=== PATIENT | male | born 1980 | race Caucasian/White ===

== ENCOUNTER → 2017-07-02 | Outpatient (CLI) | payer OTHER ==
--- NOTE | 2017-07-02 13:59 | REP ---
CT IACS WITHOUT CONTRAST: HISTORY: Left hearing loss. The right internal auditory canal, cochlea, vestibule, and semicircular canals are normal in appearance. The ossicles are normal in configuration and position. The scutum and tegmen are intact. The middle ear cavity and mastoid air cells are clear. The patient is status post left mastoidectomy. Two small metallic densities are present in the middle ear cavity. The internal auditory canal, cochlea, vestibule, and semicircular canals are normal in appearance. The tegmen is intact. Mucosal thickening is present in the mastoid air cells. Mucosal thickening is present in the left maxillary and sphenoid sinuses. The nasopharynx is normal in appearance. IMPRESSION: The patient is status post left mastoidectomy. Signed by Betito You MD 07/02/2017 02:06 P
== END ==
LOC: M RAD 12:53
PROVIDERS: ATTEND Otolaryngology
DX: H90.12 Conductive hearing loss, unilateral, left ear, with unrestricted hearing on the contralateral side (principal)

== ENCOUNTER 2017-08-30 09:08 | Day surgery (SDC) | payer OTHER ==
[~2017-08-30] VITALS: Ht 185.4 cm; Wt 94.3 kg
[2017-08-30] MEDS ORDERED: LR 1,000 ML IV ONE (09:30)
[2017-08-30] MEDS ORDERED: SCOPOLAMINE 1.5 MG TRANSDERMAL TOP ONE (13:00)
[2017-08-30] MEDS ORDERED: SCOPOLAMINE 1.5 MG TRANSDERMAL As Ordered ONE (13:12)
[2017-08-30] MEDS ORDERED: MIDAZOLAM INJ 2 MG/2 ML VIAL (J2250) As Ordered ONE (13:19)
[2017-08-30] MEDS ORDERED: fentaNYL 100 MCG/2 ML INJECTION (J3010) As Ordered ONE (13:20)
[2017-08-30] MEDS ORDERED: LIDOCAINE W/EPINEPHRINE 1% 20ML VIAL As Ordered ONE (13:24)
[2017-08-30] MEDS ORDERED: CIPRODEX OTIC SUSP 7.5ML As Ordered ONE (13:24)
[2017-08-30] MEDS ORDERED: EPINEPHrine 1MG/ML INJ 30ML MD-VIAL As Ordered ONE (13:25)
[2017-08-30] MEDS ORDERED: ONDANSETRON 4MG/2ML VIAL (J2405) As Ordered ONE (14:13)
[2017-08-30] MEDS ORDERED: LIDOCAINE 2% INJ 100 MG/5 ML SDV (FOR ANES.) As Ordered ONE (14:13)
[2017-08-30] MEDS ORDERED: dexameTHASONE 4 MG/ML 1ML VIAL (J1100) As Ordered ONE (14:13)
[2017-08-30] MEDS ORDERED: ROCURONIUM BROMIDE 50 MG/5 ML VIAL As Ordered ONE (14:13)
[2017-08-30] MEDS ORDERED: PROPOFOL 200 MG/20 ML VIAL As Ordered ONE (14:13)
[2017-08-30] MEDS ORDERED: SUCCINYLCHOLINE 100 MG/5 ML SYRINGE (J0330) As Ordered ONE (14:13)
[2017-08-30] MEDS ORDERED: HYDROmorphone HCL 2 MG/ML 1ML VIAL (J1170) As Ordered ONE (14:15)
[2017-08-30] MEDS ORDERED: BACITRACIN OINT 30GM As Ordered ONE (15:39)
[2017-08-30] MEDS ORDERED: ONDANSETRON 4MG/2ML VIAL (J2405) IV PRN (16:15)
[2017-08-30] MEDS ORDERED: LR 1,000 ML IV SCH (16:15)
[2017-08-30] MEDS ORDERED: PERCOCET 5MG/325MG TAB PO PRN (16:15)
[2017-08-30] MEDS ORDERED: fentaNYL 100 MCG/2 ML INJECTION (J3010) IV PRN (16:15)
--- NOTE | 2017-08-30 16:21 | ROOPDOC ---
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 POSTPROCEDURE DIAGNOSES: [Same]. PROCEDURE: [Left revision tympanoplasty with total ossicular chain reconstruction prosthesis placement with a Mayco total ossicular chain reconstruction prosthesis. After removal of previous titanium prosthesis, ossicular reconstruction prosthesis that had been dislodged]. SURGEON: [Palomo Marc Jr.], SAS PROGRAMMER: [None], MD ANESTHESIA: [Gen. via endotracheal tube]. ESTIMATED BLOOD LOSS: Approximately [less than 5] mL. COMPLICATIONS: [None]. REMARKS: [Found dislodged left titanium ossicular chain reconstruction prosthesis with the shoe dislodged inferiorly and angled oblique and the shaft going posteriorly superior toward the aditus ad antrum and not in continuity with the tympanic membrane. No evidence of cholesteatoma present]. PROCEDURE NOTE: [With the patient in the supine position after being induced and intubated, prepped and draped in usual fashion. The patient was injected with 2 mL 1% lidocaine 1:100,000 epinephrine in the left ear canal as well as a retroauricular region and the previous incision site. Utilizing the ear speculum. A tympano-meatal flap was created with the round knife and the sickle knife. Cartilage in the attic was identified, but no prosthesis. Initially was identified. Mucosa was entered and scar tissue was removed and the prosthesis was noted to be dislodged into the region of the aditus had antrum. It was removed as it appeared to be too short and was sent for gross pathological evaluation. Next, the shoe was noted to be dislodged off the oval window more posteriorly with the area more angled, and using an angled fine hook. It was removed without trauma. After this was removed. It was felt that the cartilage from the previous surgery needed to be removed as it was curling and may have been problematic and the placement of the graft. This was dissected with Bellucci scissors off of the residual tympanic membrane, and then it was morselized to straighten it out. Gelfoam soaked in Ciprodex was placed in the posterior inferior portions, and anterior portions surrounding the oval window. Next, the Mayco prosthesis was placed over the oval window with good blood ability and a positive round window reflex was noted. Next, the morselized cartilage was placed over the graft and part of it was placed so that it would help prevent the prosthesis from being dislodged into the aditus ad antrum again , a small incision in the retroauricular superior region, presently 2-1/2 cm was done to try and obtain more fascia. However, it was mainly scar tissue present. We did obtain some fascia and pressed and draped it over the prosthesis and then laid the temporal meatal flap over that. Gelfoam soaked in Ciprodex was placed in the external ear canal to pack the prosthesis in place. Cotton ball then was coated in bacitracin ointment placed in the carlito bowl followed by an eye pad, which was taped to the ear with 1 inch paper tape and Mastisol. A Magali dressing was then applied. Patient was seen in recovery and was doing well, had no nystagmus and no vertigo.]. DESCRIPTION OF PROCEDURE: [Revision left tympanoplasty with ossicular chain reconstruction. No evidence of cholesteatoma present.]. PALOMO MARC MD Aug 30, 2017 16:21
[2017-08-30] MEDS ORDERED: ANEXSIA, NORCO 7.5MG/325MG TABLET(HYDROCODONE/APAP) PO PRN (16:30)
[2017-08-30 17:25] VITALS: BP 128/72
== END 2017-08-30 17:28 | disposition home or self-care (01) ==
LOC: M SDC 09:08
PROVIDERS: ATTEND Otolaryngology
DX: H90.12 Conductive hearing loss, unilateral, left ear, with unrestricted hearing on the contralateral side (principal); T85.628A Displacement of other specified internal prosthetic devices, implants and grafts, initial encounter; Y72.2 Prosthetic and other implants, materials and accessory otorhinolaryngological devices associated with adverse incidents; J30.2 Other seasonal allergic rhinitis; Z87.891 Personal history of nicotine dependence; Z88.0 Allergy status to penicillin; Z88.1 Allergy status to other antibiotic agents
CPT/HCPCS: 69633; 88300; A4649; J0330; J1100; J1170; J2250; J2405; J3010

== ENCOUNTER 2019-07-27 17:11 | Emergency (ER) | payer OTHER ==
[~2019-07-27] VITALS: Ht 185.4 cm; Wt 95.5 kg
[2019-07-27] MEDS ORDERED: DOXY100T (17:21)
[2019-07-27] MEDS ORDERED: XARE20TA PO (17:21)
[2019-07-27 18:58] LABS: BASO # 0.1 10^3/uL (0.0-0.2); BASO % 0.8 % (0.0-1.0); EOS # 0.5 10^3/uL (0.0-0.5); EOS % 5.7 % (0.0-3.0); HEMATOCRIT 47.5 % (42.0-52.0); HEMOGLOBIN 17.1 g/dl (13.5-17.5); LYMPH # 3.8 10^3/uL (1.5-5.0); LYMPH % 45.1 % (24.0-44.0); MEAN CORPUSCULAR HEMOGLOBIN 31.9 pg (27.0-33.0); MEAN CORPUSCULAR VOLUME 88.6 fl (80.0-96.0); MONO # 0.7 10^3/uL (0.0-0.8); MONO % 7.9 % (0.0-5.0); NEUTROPHILS # 3.3 10^3/uL (1.5-8.5); NEUTROPHILS % 40.1 % (36.0-66.0); PLATELET COUNT, AUTOMATED 293 10^3/uL (150-450); RED BLOOD COUNT 5.36 10^6/uL (4.30-6.10); WHITE BLOOD COUNT 8.4 10^3/uL (4.0-10.0)
--- NOTE | 2019-07-27 19:01 | REP ---
Clinical: Chest pain. Comparison: None. Findings: Mediastinum and cardiac silhouette are normal. Prominent coarsened markings may reflect bronchitis. No focal consolidation, effusion, or pneumothorax. Skeletal structures intact. Impression: Cannot exclude bronchitis/chronic reactive airway disease. No focal consolidation. Electronically Signed by Isidro Dunlap MD 07/27/2019 06:52 P
[2019-07-27 19:15] LABS: BLOOD UREA NITROGEN 9 MG/DL (7-18); CALCIUM LEVEL 9.1 MG/DL (8.5-10.1); CARBON DIOXIDE LEVEL 30 MEQ/L (21-32); CHLORIDE LEVEL 104 MEQ/L (98-107); CK-MB VALUE MASS < 1.0 NG/ML (<3.6); CPK CREATINE PHOSPHOKINASE 90 U/L (39-308); CREATININE FOR GFR 0.99 MG/DL (0.70-1.30); GLOMERULAR FILTRATION RATE > 60.0 (>60); GLUCOSE, FASTING 101 MG/DL (70-100); MB/CK RELATIVE INDEX 1.11 (< OR =4); POTASSIUM SERUM 3.9 MEQ/L (3.5-5.1); SODIUM LEVEL 139 MEQ/L (136-145); TROPONIN I < 0.02 NG/ML (< 0.10)
[2019-07-27] MEDS ORDERED: ISOVUE-370 76% 100ML VIAL (Q9967) As Ordered ONE (19:56)
--- NOTE | 2019-07-27 20:43 | ECGEPIP ---
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 Order Number: [id number] Reading MD: Silvia Geller Measurements Intervals [place] Rate: 80 P: 38 IN: 175 QRS: 37 QRSD: 110 T: 30 QT: 369 QTc: 426 Interpretive Statements SINUS RHYTHM WITH SINUS ARRHYTHMIA NO PRIOR ECG FOR COMPARISON Electronically Signed on 07-27-2019 20:43:39 EDT by Silvia Geller
--- NOTE | 2019-07-27 20:54 | REPVR ---
PROCEDURE INFORMATION: Exam: CT Angiography Chest With Contrast Exam date and time: 07/27/2019 8:32 PM Clinical history: 39 years old, male; Shortness of breath; Additional info: Sob/chest pain; R/O pe TECHNIQUE: Imaging protocol: Computed tomographic angiography of the chest with intravenous contrast. 3D rendering: MIP reconstructed images were created and reviewed. Radiation optimization: All CT scans at this facility use at least one of these dose optimization techniques: automated exposure control; mA and/or kV adjustment per patient size (includes targeted exams where dose is matched to clinical indication); or iterative reconstruction. Contrast material: ISOVUE 370; Contrast volume: 75 ml; Contrast route: IV; COMPARISON: CR PORTABLE CHEST X-RAY 07/27/2019 6:31 PM FINDINGS: Limitations: Motion artifact does moderately limit the sensitivity of this examination. Pulmonary arteries: No filling defects in the pulmonary arteries to suggest pulmonary emboli. Aorta: Unremarkable. No aortic aneurysm. No aortic dissection. Lungs: Dependent subsegmental pulmonary atelectasis. Pleural space: Unremarkable. No pneumothorax. No pleural effusion. Heart: Unremarkable. No cardiomegaly. No pericardial effusion. Lymph nodes: Unremarkable. No enlarged lymph nodes. Bones/joints: Unremarkable. No acute fracture. Soft tissues: Unremarkable. IMPRESSION: No filling defects in the pulmonary arteries to suggest pulmonary emboli. Electronically signed by: Robert Nguyen On 07/27/2019 20:54:12 PM
[2019-07-27 23:17] LABS: CK-MB VALUE MASS < 1.0 NG/ML (<3.6); CPK CREATINE PHOSPHOKINASE 83 U/L (39-308); TROPONIN I < 0.02 NG/ML (< 0.10)
[2019-07-28 00:04] VITALS: BP 129/94
--- NOTE | 2019-07-28 22:33 | ECGEPIP ---
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
== END 2019-07-28 00:20 | disposition home or self-care (01) ==
LOC: M ED 17:11
DX: R07.9 Chest pain, unspecified (principal); Z86.718 Personal history of other venous thrombosis and embolism; Z88.1 Allergy status to other antibiotic agents; Z79.01 Long term (current) use of anticoagulants; Z79.899 Other long term (current) drug therapy
CPT/HCPCS: 36415; 71045; 71275; 80048; 82550; 82553; 84484; 85025; 93005; 93041; 94760; 99285; Q9967

== ENCOUNTER → 2019-10-05 | Outpatient (CLI) | payer OTHER ==
[~2019-10-05] MED LIST: DOXY100T; INDO50CA91 PO; TIZA4TAB4 PO; XARE20TA PO
--- NOTE | 2019-10-05 20:13 | REP ---
Clinical: Bilateral lower extremity pain. Given history of prior right lower extremity deep venous thrombosis. Technique: Russell scale and color Doppler evaluation using linear high frequency transducer. Findings: Right lower extremity demonstrates incidental duplicated distal femoral vein along with small amount of nonocclusive thrombus along the periphery of the distal femoral vein and popliteal vein consistent with the given history of prior deep venous thrombosis. No acute occlusive thrombus is appreciated. Left lower extremity demonstrates normal compressibility, flow, and wave patterns without evidence for deep venous thrombosis. Impression: 1. Suspected small amount of old nonocclusive thrombus in the right femoral vein/popliteal vein. 2. Normal left lower extremity without the venous thrombosis. Electronically Signed by Isidro Dunlap MD 10/05/2019 08:05 P
== END ==
LOC: M RAD 08:39
PROVIDERS: ATTEND Internal Medicine Hematology
DX: M79.605 Pain in left leg (principal); M79.604 Pain in right leg

== ENCOUNTER 2019-10-25 08:26 | Emergency (ER) | payer OTHER ==
[~2019-10-25] VITALS: Ht 185.4 cm; Wt 101.7 kg
[2019-10-25] MEDS ORDERED: ASPI81TA26 (08:39)
[2019-10-25] MEDS ORDERED: ACETAMINOPHEN 325 MG TAB PO ONE (09:30)
[2019-10-25 09:36] LABS: BASO # 0.1 10^3/uL (0.0-0.2); EOS # 0.4 10^3/uL (0.0-0.5); EOS % 8.4 % (0.0-3.0); HEMATOCRIT 50.9 % (42.0-52.0); HEMOGLOBIN 17.5 g/dl (13.5-17.5); LYMPH # 2.3 10^3/uL (1.5-5.0); LYMPH % 44.1 % (24.0-44.0); MEAN CORPUSCULAR HEMOGLOBIN 30.4 pg (27.0-33.0); MEAN CORPUSCULAR HGB CONC 34.4 g/dl (32.0-36.5); MEAN CORPUSCULAR VOLUME 88.5 fl (80.0-96.0); MONO # 0.5 10^3/uL (0.0-0.8); MONO % 9.4 % (0.0-5.0); NEUTROPHILS # 1.9 10^3/uL (1.5-8.5); NEUTROPHILS % 36.7 % (36.0-66.0); PLATELET COUNT, AUTOMATED 281 10^3/uL (150-450); RED BLOOD COUNT 5.75 10^6/uL (4.30-6.10); WHITE BLOOD COUNT 5.2 10^3/uL (4.0-10.0)
[2019-10-25 09:49] LABS: INR 1.06; PARTIAL THROMBOPLASTIN TIME 27.2 SECONDS (25.0-38.4); PROTHROMBIN TIME 13.6 SECONDS (11.8-14.0)
[2019-10-25 09:55] LABS: APPEARANCE, URINE CLEAR (CLEAR); BACTERIA, URINE AUTO NEGATIVE (NEGATIVE); BILIRUBIN, URINE AUTO NEGATIVE (NEGATIVE); BLOOD, URINE BLOOD NEGATIVE (NEGATIVE); COLOR, URINE YELLOW (YELLOW); GLUCOSE, URINE (UA) AUTO NEGATIVE (NEGATIVE); KETONE, URINE AUTO TRACE mg/dL (NEGATIVE); LEUKOCYTE ESTERASE, URINE AUTO NEGATIVE (NEGATIVE); NITRITE, URINE AUTO NEGATIVE (NEGATIVE); PROTEIN, URINE AUTO NEGATIVE (NEGATIVE); RBC, URINE AUTO 1 /HPF (0-3); SPECIFIC GRAVITY URINE AUTO 1.018 (1.002-1.035); SQUAMOUS EPITHELIAL CELL UR AU 0 /HPF (0-6); WBC, URINE AUTO 0 /HPF (0-3)
[2019-10-25 10:24] LABS: BLOOD UREA NITROGEN 14 MG/DL (7-18); CALCIUM LEVEL 8.9 MG/DL (8.5-10.1); CARBON DIOXIDE LEVEL 28 MEQ/L (21-32); CHLORIDE LEVEL 103 MEQ/L (98-107); CREATININE FOR GFR 1.09 MG/DL (0.70-1.30); GLOMERULAR FILTRATION RATE > 60.0 (>60); GLUCOSE, FASTING 86 MG/DL (70-100); POTASSIUM SERUM 4.2 MEQ/L (3.5-5.1); SODIUM LEVEL 137 MEQ/L (136-145)
--- NOTE | 2019-10-25 11:39 | REP ---
RIGHT LOWER EXTREMITY DOPPLER VENOUS ULTRASOUND: 10/25/2019. Clinical history: On blood thinners for 2 weeks with DVT seen at that time, nonocclusive right femoral and popliteal vein. Apparently had previous DVT to that. Comparison: 10/05/2019. Findings: Standard duplex techniques were utilized. In the right popliteal vein and tibioperoneal trunk there is a small amount of residual nonocclusive thrombus. Color flow is maintained through these vessels. I do not see any thrombus in the distal femoral vein. It shows full compressibility. The common femoral vein was also intact and fully compressible. All levels show respiratory variation and augmented flow. Impression: 1. Some residual nonocclusive thrombus in the popliteal vein to the level of the tibioperoneal trunk. No thrombus in the distal femoral vein today. Some improvement since 10/05/2019. Electronically Signed by Fredy Burgos MD 10/25/2019 08:24 P
--- NOTE | 2019-10-25 11:42 | REP ---
LIMITED PELVIC ULTRASOUND: 10/25/2019. Clinical history: Right groin pain. Evaluate for inguinal hernia or appendicitis. Please scan these areas. Findings: Sonographic evaluation of the right lower quadrant in the region of the pain showed no visible appendix. The abdomen in this region is obscured by extensive gas shadowing with no appendix visualization on these images. Scanning of the right inguinal canal in comparison with the left shows symmetric appearance inguinal canal. No mass at rest. No mass or increase in size with Valsalva maneuver. Impression: 1. There is no ultrasound evidence of right inguinal hernia or mass. Exam performed at rest and with Valsalva maneuver with no changes. Similar appearance on the left. 2. Appendix not visualized. This does not exclude the possibility of appendicitis. Any decision for further imaging should be based on appropriate clinical grounds. Electronically Signed by Fredy Burgos MD 10/25/2019 08:24 P
--- NOTE | 2019-10-25 11:44 | REP ---
SCROTAL ULTRASOUND: 10/25/2019. Clinical history: Right scrotal/testicular pain. Findings: No prior studies. The patient did have concurrent right inguinal ultrasound today without visible hernia. The right testis 3.9 x 2.3 x 3.2 cm and the left testis 4.6 x 2.4 x 2.8 cm. Both testes are homogeneous in appearance and without calcification, mass, cyst or architectural distortion. There is no evidence of hydrocele. There is no varicocele. Blood flow seen in both testes with Doppler tracing 0.53 on the right and 0.58 on the left, normal. The epididymal head has a CC diameter 8.4 mm on the right and 7.6 mm on the left, normal scrotal wall thickness is 3 mm in each side and normal. No hyperemia or other significant finding. Impression: 1. Bilateral normal testes. No abnormalities visible on the scrotal ultrasound. Normal blood flow without torsion. No mass or abnormal fluid collection. Electronically Signed by Fredy Burgos MD 10/25/2019 08:24 P
[2019-10-25] MEDS ORDERED: KETOROLAC TROMETHAMINE 10 MG TAB PO ONE (12:15)
[2019-10-25] MEDS ORDERED: KETO10TAB PO ×2 (12:15→12:33)
[2019-10-25] MEDS ORDERED: CYCL10TA PO ×2 (12:15→12:33)
[2019-10-25 12:18] VITALS: BP 134/93
== END 2019-10-25 12:34 | disposition home or self-care (01) ==
LOC: M ED 08:26
DX: S76.811A Strain of other specified muscles, fascia and tendons at thigh level, right thigh, initial encounter (principal); X50.0XXA Overexertion from strenuous movement or load, initial encounter; Y99.1 Military activity; Z86.718 Personal history of other venous thrombosis and embolism; Z88.0 Allergy status to penicillin; Z88.1 Allergy status to other antibiotic agents; Z79.02 Long term (current) use of antithrombotics/antiplatelets; Z79.891 Long term (current) use of opiate analgesic; Z79.899 Other long term (current) drug therapy

== ENCOUNTER 2020-02-07 16:49 | Emergency (ER) | payer OTHER ==
[~2020-02-07] VITALS: Ht 185.4 cm; Wt 109.4 kg
[~2020-02-07 16:49] MED LIST changes: +ASPI81TA26; +CYCL-707 PO; +KETO10TAB PO
[2020-02-07] MEDS ORDERED: NS 1,000 ML IV ONE (17:15)
[2020-02-07 17:26] LABS: BASO # 0.1 10^3/uL (0.0-0.2); BASO % 1.1 % (0.0-1.0); EOS # 0.6 10^3/uL (0.0-0.5); EOS % 6.9 % (0.0-3.0); HEMATOCRIT 49.4 % (42.0-52.0); HEMOGLOBIN 17.7 g/dl (13.5-17.5); LYMPH # 2.8 10^3/uL (1.5-5.0); LYMPH % 33.9 % (24.0-44.0); MEAN CORPUSCULAR HEMOGLOBIN 31.2 pg (27.0-33.0); MEAN CORPUSCULAR HGB CONC 35.8 g/dl (32.0-36.5); MEAN CORPUSCULAR VOLUME 87.1 fl (80.0-96.0); MONO # 0.8 10^3/uL (0.0-0.8); MONO % 9.1 % (0.0-5.0); PLATELET COUNT, AUTOMATED 329 10^3/uL (150-450); RED BLOOD COUNT 5.67 10^6/uL (4.30-6.10); WHITE BLOOD COUNT 8.3 10^3/uL (4.0-10.0)
[2020-02-07 17:30] LABS: INR 0.97; PROTHROMBIN TIME 12.6 SECONDS (11.8-14.0)
[2020-02-07] MEDS ORDERED: METOPROLOL TART 25 MG TABLET PO ONE (17:30)
[2020-02-07] MEDS ORDERED: ASPIRIN 325 MG TAB PO ONE (17:30)
[2020-02-07 17:32] VITALS: BP 151/101
[2020-02-07 17:53] LABS: ALBUMIN 3.6 GM/DL (3.2-5.2); ALT/SGPT 31 U/L (12-78); BILIRUBIN,DIRECT 0.3 MG/DL (0.0-0.2); BILIRUBIN,TOTAL 1.6 MG/DL (0.2-1.0); BLOOD UREA NITROGEN 10 MG/DL (7-18); CALCIUM LEVEL 8.3 MG/DL (8.5-10.1); CARBON DIOXIDE LEVEL 26 MEQ/L (21-32); CHLORIDE LEVEL 104 MEQ/L (98-107); CK-MB VALUE MASS < 1.0 NG/ML (<3.6); CPK CREATINE PHOSPHOKINASE 108 U/L (39-308); CREATININE FOR GFR 1.11 MG/DL (0.70-1.30); FREE THYROXINE INDEX 2.7 % (1.4-3.8); GLOMERULAR FILTRATION RATE > 60.0 (>60); GLUCOSE, FASTING 116 MG/DL (70-100); MAGNESIUM LEVEL 1.8 MG/DL (1.8-2.4); MB/CK RELATIVE INDEX 0.93 (< OR =4); SODIUM LEVEL 137 MEQ/L (136-145); T UPTAKE 37 % (33-40); THYROXINE (T4) 7.4 UG/DL (4.5-12.0); TOTAL PROTEIN 7.5 GM/DL (6.4-8.2); TROPONIN I < 0.02 NG/ML (< 0.10)
[2020-02-07 18:30] VITALS: BP 145/83
--- NOTE | 2020-02-08 03:59 | REP ---
Clinical: Chest pain. Comparison: 07/27/2019. Findings: Evaluation is limited by portable technique, underpenetration, and poor inspiratory effort which accentuates the pulmonary vasculature and interstitium. The mediastinum and cardiac silhouette are within normal limits and stable. No focal consolidation, effusion, or pneumothorax. Mild pulmonary vascular congestion cannot be excluded. Skeletal structures are intact. Impression: Limited examination. No focal consolidation or effusion. Electronically Signed by Isidro Dunlap MD 02/08/2020 03:51 A
--- NOTE | 2020-02-08 16:42 | ECGEPIP ---
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
== END 2020-02-07 18:43 | disposition home or self-care (01) ==
LOC: M ED 16:49
DX: R00.2 Palpitations (principal); R06.02 Shortness of breath; K21.9 Gastro-esophageal reflux disease without esophagitis; Z87.891 Personal history of nicotine dependence; Z88.0 Allergy status to penicillin; Z88.1 Allergy status to other antibiotic agents; Z79.82 Long term (current) use of aspirin

== ENCOUNTER 2020-05-16 07:10 | Day surgery (SDC) | payer OTHER ==
[~2020-05-16 07:10] MED LIST changes: +LIDOCAINE 2% MDV 20ML VIAL As Ordered ONE; +propofoL 200 MG/20 ML VIAL As Ordered ONE
[2020-05-16] MEDS ORDERED: fentaNYL 100 MCG/2 ML INJECTION (J3010) As Ordered ONE (07:39)
--- NOTE | 2020-06-08 11:28 | ROOR ---
Patient Name: Derian Smith Procedure Date: 05/16/2020 7:32 AM Date of : 1980 Age: 39 Room: [facility] Gender: Male Note Status: Finalized Procedure: Total Colonoscopy to Cecum + Cold Snare Polypectomy + Hemoclips Indications: Lower abdominal pain Providers: Zander Chew MD Referring MD: PATRICIA QUINTERO MD Requesting Provider: Medicines: Monitored Anesthesia Care Complications: No immediate complications. Procedure: Pre-Anesthesia Assessment: - The heart rate, respiratory rate, oxygen saturations, blood pressure, adequacy of pulmonary ventilation, and response to care were monitored throughout the procedure. The Colonoscope was introduced through the anus and advanced to the terminal ileum, with identification of the appendiceal orifice and IC valve. The colonoscopy was performed without difficulty. The patient tolerated the procedure well. The quality of the bowel preparation was excellent. Findings: The perianal and digital rectal examinations were normal. Non-bleeding internal hemorrhoids were found during retroflexion. The hemorrhoids were small and Grade I (internal hemorrhoids that do not prolapse). A small polyp was found at 30 cm proximal to the anus. The polyp was sessile. The polyp was removed with a cold snare. Resection and retrieval were complete. To close a defect after polypectomy, one hemostatic clip was successfully placed (MR conditional). There was no bleeding at the end of the procedure. The exam was otherwise without abnormality on direct and retroflexion views. Biopsies for histology were taken with a cold forceps from the ascending colon and transverse colon for evaluation of microscopic colitis. The terminal ileum appeared normal. The exam was otherwise without abnormality. Impression: - Non-bleeding internal hemorrhoids. - One small polyp at 30 cm proximal to the anus, removed with a cold snare. Resected and retrieved. Clip (MR conditional) was placed. - The examination was otherwise normal on direct and retroflexion views. - The examined portion of the ileum was normal. - The examination was otherwise normal. - Biopsies were taken with a cold forceps from the ascending colon and transverse colon for evaluation of microscopic colitis. - The exam was otherwise normal to the cecum. Recommendation: - Patient has a contact number available for emergencies. The signs and symptoms of potential delayed complications were discussed with the patient. Return to normal activities tomorrow. Written discharge instructions were provided to the patient. - High fiber diet. - Discharge patient to home. - Continue present medications. - Await pathology results. - Telephone GI clinic for pathology results in 1 week. - Repeat colonoscopy in 10 years for screening purposes. - Return to referring physician. - The findings and recommendations were discussed with the patient. Zander Chew MD 05/16/2020 8:02:42 AM Number of Addenda: 0 Note Initiated On: 05/16/2020 7:32 AM Estimated Blood Loss: Estimated blood loss: none.
--- NOTE | 2020-06-08 11:28 | ROOR ---
Patient Name: Derian Smith Procedure Date: 05/16/2020 7:30 AM Date of : 1980 Age: 39 Room: [facility] Gender: Male Note Status: Office Coordinator Override Procedure: Upper Endoscopy + Biopsies Indications: Epigastric abdominal pain, Heartburn, Exclusion of East's esophagus, Nausea with vomiting Providers: Zander Chew MD Referring MD: PATRICIA QUINTERO MD Requesting Provider: Medicines: Monitored Anesthesia Care Complications: No immediate complications. Procedure: Pre-Anesthesia Assessment: - The heart rate, respiratory rate, oxygen saturations, blood pressure, adequacy of pulmonary ventilation, and response to care were monitored throughout the procedure. The Endoscope was introduced through the mouth, and advanced to the second part of duodenum. The upper GI endoscopy was accomplished without difficulty. The patient tolerated the procedure well. Findings: The Z-line was irregular and was found 40 cm from the incisors. Multiple biopsies were obtained with cold forceps for evaluation to rule out East's Esophagus randomly at the gastroesophageal junction. A small hiatal hernia was present. No other significant abnormalities were identified in a careful examination of the stomach. Biopsies were taken with a cold forceps in the gastric antrum for Helicobacter pylori testing. The exam of the duodenum was otherwise normal. Impression: - Z-line irregular, 40 cm from the incisors. - Small hiatal hernia. - Multiple biopsies were obtained at the gastroesophageal junction. - Biopsies were taken with a cold forceps for Helicobacter pylori testing. - The examination was otherwise normal. Recommendation: - Patient has a contact number available for emergencies. The signs and symptoms of potential delayed complications were discussed with the patient. Return to normal activities tomorrow. Written discharge instructions were provided to the patient. - High fiber diet. - Discharge patient to home. - Follow an antireflux regimen. - Continue present medications. - Await pathology results. - Telephone GI clinic for pathology results in 1 week. - Return to referring physician. - The findings and recommendations were discussed with the patient. Zander Chew MD Zander Chew MD 05/16/2020 7:45:44 AM Electronically signed by Zander Chew MD Number of Addenda: 0 Note Initiated On: 05/16/2020 7:30 AM Estimated Blood Loss: Estimated blood loss: none.
== END 2020-05-16 08:28 | disposition home or self-care (01) ==
LOC: M SDC 07:10
PROVIDERS: ATTEND Internal Medicine Gastroenterology
DX: K63.5 Polyp of colon (principal); K64.0 First degree hemorrhoids; R10.30 Lower abdominal pain, unspecified; K22.8 Other specified diseases of esophagus; K44.9 Diaphragmatic hernia without obstruction or gangrene; R10.13 Epigastric pain; R11.2 Nausea with vomiting, unspecified; Z79.82 Long term (current) use of aspirin; Z88.0 Allergy status to penicillin; Z85.831 Personal history of malignant neoplasm of soft tissue; Z86.718 Personal history of other venous thrombosis and embolism
CPT/HCPCS: 43239; 45380; 45385; 88305; J3010